=== PATIENT | female | born 1975 | race Two or more races ===

== ENCOUNTER 2016-06-13 14:10 | Inpatient (IN) | payer MEDICAID ==
[~2016-06-13] VITALS: Ht 157.5 cm; Wt 47.2 kg
[~2016-06-13 14:10] MED LIST: ALLO100T PO; BENA20TA2 PO; HYDR-4076 PO; IBUP-1619 PO; LABE100T15 PO; LISI-603 PO; ONDA-25 PO; SEVE800T PO
[2016-06-13] MEDS ORDERED: METO25TA6 PO (15:50)
[2016-06-13] MEDS ORDERED: MECL12.582 PO (15:50)
[2016-06-13] MEDS ORDERED: FOLI0.8T23 PO (15:50)
[2016-06-13] MEDS ORDERED: NIFE20CA PO (15:50)
[2016-06-13 16:32] LABS: BASOPHILS % (AUTO) 0.5 % (0.0-2.0); DIFF TOTAL % 100 %; HEMATOCRIT 38 % (33-45); HEMOGLOBIN 12.6 g/dL (11.5-14.8); LYMPHOCYTES # (AUTO) 0.8 /CMM (0.8-4.8); LYMPHOCYTES % (AUTO) 19.1 % (20.0-44.0); MEAN CORPUSCULAR HEMOGLOBIN 31 PG (26.0-33.0); MEAN CORPUSCULAR HGB CONC 33 g/dl (31.0-36.0); MEAN CORPUSCULAR VOLUME 95 fL (82-100); MONOCYTES # (AUTO) 0.5 /CMM (0.1-1.30); MONOCYTES % (AUTO) 12.4 % (2.0-12.0); NEUTROPHILS # (AUTO) 2.7 /CMM (1.8-8.9); PLATELET COUNT (AUTO) 164 /CMM (150-450); RED BLOOD CELL COUNT(AUTO) 4.05 MIL/uL (4.0-5.2)
[2016-06-13 16:46] LABS: CALCIUM, SERUM 9.4 mg/dL (8.5-10.1); CREATININE 4.7 mg/dL (0.6-1.3); POTASSIUM 5.9 mmol/L (3.5-5.1)
[2016-06-13 16:49] LABS: INR 1.02 (0.87-1.13); PROTHROMBIN TIME 10.7 SECS (9.5-12.7)
[2016-06-13 17:34] VITALS: BP 156/112
[2016-06-13 17:50] VITALS: BP 157/76
[2016-06-13] MEDS ORDERED: ZOLPIDEM TARTRATE 5 MG TABLET PO PRN (18:00)
[2016-06-13] MEDS ORDERED: ACETAMINOPHEN 325 MG TABLET PO PRN (18:00)
[2016-06-13] MEDS ORDERED: ONDANSETRON 4 MG TAB.RAPDIS PO PRN (18:30)
[2016-06-13] MEDS: METOPROLOL TARTRATE 25 MG TABLET PO SCH (18:44)
[2016-06-13] MEDS: hydrALAZINE HCL 25 MG TABLET PO SCH (19:13)
[2016-06-13 20:27] VITALS: BP 130/89
[2016-06-13] MEDS: MECLIZINE HCL 12.5 MG TABLET PO SCH (20:27)
[2016-06-13] MEDS: NIFEdipine (10MG) 10 MG CAPSULE PO SCH (20:28)
[2016-06-13] MEDS ORDERED: hydrALAZINE HCL 25 MG TABLET PO SCH (21:00)
[2016-06-14] MEDS: hydrALAZINE HCL 25 MG TABLET PO SCH ×3 (03:32→19:56)
[2016-06-14 07:45] LABS: BASOPHILS % (AUTO) 0.9 % (0.0-2.0); DIFF TOTAL % 100 %; EOSINOPHILS # (AUTO) 0.1 /CMM (0.0-0.7); EOSINOPHILS % (AUTO) 3.6 % (0.0-6.0); HEMATOCRIT 38 % (33-45); HEMOGLOBIN 12.8 g/dL (11.5-14.8); LYMPHOCYTES # (AUTO) 0.9 /CMM (0.8-4.8); LYMPHOCYTES % (AUTO) 25.3 % (20.0-44.0); MEAN CORPUSCULAR HEMOGLOBIN 32 PG (26.0-33.0); MEAN CORPUSCULAR HGB CONC 34 g/dl (31.0-36.0); MEAN CORPUSCULAR VOLUME 94 fL (82-100); MONOCYTES # (AUTO) 0.4 /CMM (0.1-1.30); MONOCYTES % (AUTO) 11.3 % (2.0-12.0); NEUTROPHILS % (AUTO) 58.9 % (43.0-81.0); PLATELET COUNT (AUTO) 178 /CMM (150-450); RED BLOOD CELL COUNT(AUTO) 4.02 MIL/uL (4.0-5.2); WHITE BLOOD COUNT (AUTO) 3.4 K/uL (4.3-11.0)
[2016-06-14 07:58] LABS: PROTHROMBIN TIME 10.8 SECS (9.5-12.7)
[2016-06-14 08:00] VITALS: BP 127/86
[2016-06-14] MEDS: SEVELAMER CARBONATE 800 MG TABLET PO SCH ×3 (08:00→16:50)
[2016-06-14 08:05] LABS: ALBUMIN 3.7 g/dL (3.4-5.0); BILIRUBIN,TOTAL 0.4 mg/dL (0.2-1.0); CALCIUM, SERUM 9.1 mg/dL (8.5-10.1); CREATININE 6.6 mg/dL (0.6-1.3); PHOSPHORUS 4.8 mg/dL (2.5-4.9); TOTAL PROTEIN, SERUM 7.4 g/dL (6.4-8.2)
[2016-06-14 08:12] LABS: POTASSIUM 6.5 mmol/L (3.5-5.1)
[2016-06-14] MEDS: MECLIZINE HCL 12.5 MG TABLET PO SCH ×4 (08:29→20:31)
[2016-06-14] MEDS: VIT B CMPLX 3/FA/VIT C/BIOTIN 1 TAB TABLET PO SCH (08:30)
[2016-06-14] MEDS: METOPROLOL TARTRATE 25 MG TABLET PO SCH ×2 (08:30→16:49)
[2016-06-14] MEDS: LISINOPRIL (20MG) 20 MG TABLET PO SCH (08:30)
[2016-06-14] MEDS: ALLOPURINOL 100 MG TABLET PO SCH (08:31)
[2016-06-14] MEDS: NIFEdipine (10MG) 10 MG CAPSULE PO SCH ×2 (08:31→20:31)
[2016-06-14] MEDS ORDERED: METOPROLOL TARTRATE 25 MG TABLET PO SCH (09:00)
[2016-06-14] MEDS ORDERED: HEPARIN SODIUM, PORCINE 1,000 UNIT/ML VIAL ONE ×3 (09:00→13:36)
[2016-06-14] MEDS ORDERED: LIDOCAINE HCL/PF 1% 30 ML SDV ONE ×2 (09:01→13:36)
[2016-06-14] MEDS ORDERED: FENTANYL PF 100MCG/2ML AMPUL ONE ×2 (13:56→14:50)
[2016-06-14 16:00] VITALS: BP 127/92
[2016-06-14] MEDS: MORPHINE SULFATE INJ 2 MG/ML DISP.SYRIN IM/IV PRN (20:51)
[2016-06-14 22:18] VITALS: BP 135/98
[2016-06-15] MEDS: hydrALAZINE HCL 25 MG TABLET PO SCH ×2 (04:00→12:01)
[2016-06-15] MEDS: MORPHINE SULFATE INJ 2 MG/ML DISP.SYRIN IM/IV PRN ×3 (06:52→14:06)
[2016-06-15 08:00] VITALS: BP 119/87
[2016-06-15] MEDS: ALLOPURINOL 100 MG TABLET PO SCH (08:34)
[2016-06-15] MEDS: VIT B CMPLX 3/FA/VIT C/BIOTIN 1 TAB TABLET PO SCH (08:34)
[2016-06-15] MEDS: SEVELAMER CARBONATE 800 MG TABLET PO SCH ×2 (08:34→12:01)
[2016-06-15] MEDS: LISINOPRIL (20MG) 20 MG TABLET PO SCH (08:35)
[2016-06-15] MEDS: METOPROLOL TARTRATE 25 MG TABLET PO SCH (08:36)
[2016-06-15] MEDS: NIFEdipine (10MG) 10 MG CAPSULE PO SCH (08:36)
[2016-06-15] MEDS: MECLIZINE HCL 12.5 MG TABLET PO SCH ×2 (08:38→12:01)
[2016-06-15 12:01] VITALS: BP 143/92
== END 2016-06-15 15:15 | disposition home or self-care (01) | DRG 466 ==
LOC: ER 14:12 → MED 16:45
PROVIDERS: ADMIT Internal Medicine Nephrology; ATTEND Internal Medicine Nephrology
PROC: B513YZA Fluoroscopy of Right Jugular Veins using Other Contrast, Guidance (ICD-10-PCS; principal; 2016-06-14 14:26)
PROC: 5A1D00Z (ICD-10-PCS; principal; 2016-06-14 14:26)
PROC: 05HM33Z Insertion of Infusion Device into Right Internal Jugular Vein, Percutaneous Approach (ICD-10-PCS; principal; 2016-06-14 14:26)
DX: T82.41XA Breakdown (mechanical) of vascular dialysis catheter, initial encounter (principal); N18.6 End stage renal disease; I12.0 Hypertensive chronic kidney disease with stage 5 chronic kidney disease or end stage renal disease; E87.5 Hyperkalemia; Z99.2 Dependence on renal dialysis; Y84.9 Medical procedure, unspecified as the cause of abnormal reaction of the patient, or of later complication, without mention of misadventure at the time of the procedure; Y92.009 Unspecified place in unspecified non-institutional (private) residence as the place of occurrence of the external cause
CPT/HCPCS: 36415; 71010-TC; 80048-TC; 80053-TC; 83735-TC; 84100-TC; 84132-TC; 85025-TC; 85610-TC; 85730-TC; 87081-TC; 90935-TC; A4606; A6402; C1750; J1644; J2270; J3010; J3490; J8597; Z7610

== ENCOUNTER 2016-11-14 13:18 | Inpatient (IN) | payer OTHER ==
[~2016-11-14] VITALS: Ht 152.4 cm; Wt 44.9 kg
[~2016-11-14 13:18] MED LIST changes: -BENA20TA2 PO; +FOLI0.8T23 PO; -IBUP-1619 PO; -LABE100T15 PO; +MECL12.582 PO; +METO25TA6 PO; +NIFE20CA PO
--- NOTE | 2016-11-14 13:25 | NUR ---
AAOX3, CAME TO ER C/O SOB S/P DIALYSIS THIS MORNING . RR IS EVEN AND UNLABORED WITH NAD NOTED. SKIN IS WARM AND DRY. ASSISTED TO HOSPITAL GOWN, PLACED ON MONITOR. SPO2=99% ON RA. AWAITING MD FOR EVAL.
[2016-11-14 13:44] LABS: BASOPHILS % (AUTO) 0.5 % (0.0-2.0); EOSINOPHILS % (AUTO) 0.3 % (0.0-6.0); HEMATOCRIT 43 % (33-45); HEMOGLOBIN 14.1 g/dL (11.5-14.8); LYMPHOCYTES # (AUTO) 0.9 /CMM (0.8-4.8); LYMPHOCYTES % (AUTO) 16.7 % (20.0-44.0); MEAN CORPUSCULAR HEMOGLOBIN 32 PG (26.0-33.0); MEAN CORPUSCULAR HGB CONC 33 g/dl (31.0-36.0); MEAN CORPUSCULAR VOLUME 97 fL (82-100); MONOCYTES # (AUTO) 0.4 /CMM (0.1-1.30); NEUTROPHILS # (AUTO) 3.8 /CMM (1.8-8.9); NEUTROPHILS % (AUTO) 74.5 % (43.0-81.0); PLATELET COUNT (AUTO) 210 /CMM (150-450); RDW COEFFICIENT OF VARIATION 12.3 (11.5-15.0); RED BLOOD CELL COUNT(AUTO) 4.42 MIL/uL (4.0-5.2); WHITE BLOOD COUNT (AUTO) 5.1 K/uL (4.3-11.0)
[2016-11-14 13:53] LABS: CALCIUM, SERUM 9.2 mg/dL (8.5-10.1); POTASSIUM 5.5 mmol/L (3.5-5.1)
[2016-11-14 13:58] LABS: INR 1.04 (0.87-1.13); PROTHROMBIN TIME 10.8 SECS (9.5-12.7)
[2016-11-14] MEDS ORDERED: IV NS 0.9% 500 ML BAG IV ONE (14:00)
[2016-11-14 14:01] LABS: TROPONIN I 0.077 ng/mL (0.00-0.056)
[2016-11-14 14:06] LABS: ALBUMIN 4.1 g/dL (3.4-5.0); BILIRUBIN,DIRECT 0.1 mg/dL (0.0-0.2); BILIRUBIN,TOTAL 0.3 mg/dL (0.2-1.0); TOTAL PROTEIN, SERUM 8.3 g/dL (6.4-8.2)
[2016-11-14] MEDS ORDERED: IV SET PRIMARY 1 EA INFUS.SET MC ONE (14:06)
[2016-11-14] MEDS ORDERED: IV NS 0.9% 500 ML IV ONE (14:06)
--- NOTE | 2016-11-14 14:30 | NUR ---
ASSISTANT DIRECTOR NOTES WRITTEN ORDERS PER DR. KERN FOR A BOLUS OF NS 500ML WERE ACKNOWLEDGED. WILL CARRY OUT ORDER STAT
[2016-11-14] MEDS ORDERED: VANCOMYCIN 1 GM in IV D5W 250 ML IV ONE (15:00)
--- NOTE | 2016-11-14 15:41 | NUR ---
TELE 320-1
--- NOTE | 2016-11-14 16:07 | NUR ---
PATIENT TRANSPORTED TO .
--- NOTE | 2016-11-14 16:07 | NUR ---
Report given to floor rn
--- NOTE | 2016-11-14 16:23 | NUR ---
SPECIAL FORCES ENGINEER SERGEANT NOTES RECEIVED PT. FROM ER NURSE IN STABLE CONDITION. PT. IS A/O X3. NO SOB OR SIGNS OF DISTRESS NOTED. BREATHING IS EVEN AND UNLABORED. ON ROOM AIR SATING AT 98%. PT. DENIES PAIN AT THIS TIME. ON TELE WITH SINUS RHYTHM, HR 70. RIGHT CHEST WALL PERMCATH INTACT. IV PRESENT ON RIGHT AC 20G PATENT AND INTACT. BED IN LOW LOCKED POSITION, SIDE RAILS UP X2, CALL LIGHT WITHIN REACH. AT BEDSIDE. PT. WAS ORIENTED TO THE ROOM. WILL BEGIN ADMISSION PROCESS AND AWAIT FURTHER ORDERS FROM THE MD.
[2016-11-14] MEDS ORDERED: IV NS 0.9% 250 ML BAG IV STA (16:24)
[2016-11-14 16:30] VITALS: BP 88/55
[2016-11-14] MEDS ORDERED: IV SET PRIMARY PUMP SET 1 EA INFUS.SET MC ONE (16:45)
[2016-11-14] MEDS ORDERED: FEE PK DOSING 1 MIN EA MC ONE (18:25)
[2016-11-14 18:28] VITALS: BP 88/55
[2016-11-14] MEDS ORDERED: VANCOMYCIN 500 MG in IV D5W 100 ML IV PRN (18:30)
[2016-11-14] MEDS ORDERED: ACETAMINOPHEN 325 MG TABLET PO PRN (18:30)
--- NOTE | 2016-11-14 18:43 | NUR ---
REGISTRATION SCHEDULING SPECIALIST CLOSING NOTES PT. IN STABLE CONDITION. WRITTEN ORDERS CARRIED OUT ACCORDING TO DR. KERN'S ORDER. ALL NEEDS MET. NO FEVER AT THIS TIME. WILL ENDORSE TO [facility] SHIFT NURSE FOR JERE
[2016-11-14] MEDS ORDERED: ONDANSETRON 4 MG TAB.RAPDIS PO PRN (19:00)
[2016-11-14 20:16] VITALS: BP 89/57
[2016-11-14] MEDS: hydrALAZINE HCL 25 MG TABLET PO SCH ×2 (21:00→21:25)
[2016-11-14] MEDS: METOPROLOL TARTRATE 25 MG TABLET PO SCH (21:00)
[2016-11-14] MEDS: MECLIZINE HCL 12.5 MG TABLET PO SCH (21:23)
[2016-11-14] MEDS ORDERED: SECONDARY IV SET 1 EA INFUS.SET MC ONE (21:27)
[2016-11-14] MEDS: PIPERACILLIN /TAZOBACTAM 2.25 G in IV D5W 50 ML IV SCH (21:34)
[2016-11-14] MEDS ORDERED: IV NS 0.9% 250 ML IV ONE (21:38)
[2016-11-14 23:34] VITALS: BP 89/57
[2016-11-15] VITALS (8 sets, daily range): BP systolic 87–109; BP diastolic 56–71
[2016-11-15] MEDS: PIPERACILLIN /TAZOBACTAM 2.25 G in IV D5W 50 ML IV SCH ×3 (05:18→21:06)
--- NOTE | 2016-11-15 06:17 | NUR ---
APPRAISAL MANAGER CLOSING NOTES. PT IN ROOM. A&OX3. RESPIRATION EVEN AND UNLABORED. NO SOB. NO ACUTE DISTRESS NOTED. NO COMPLAIN OF PAIN AT THIS TIME. RIGHT AC #20G. PATENT AND INTACT. FLUSHING WELL. BED IN LOW AND LOCKED POSITION. SIDERAILS UP X2. CALL LIGHT WITHIN REACH. WILL ENDORSE TO NEXT SHIFT NURSE FOR CONTINUITY OF CARE.
--- NOTE | 2016-11-15 07:55 | NUR ---
PRODUCE WEIGHER OPENING NOTES RECEIVED PATIENT ON BED SLEEPING. RESPIRATION EVEN AND UNLABORED. NO SOB. NO ACUTE DISTRESS NOTED. NO COMPLAIN OF PAIN AT THIS TIME. IV SITE PATENT AND INTACT. BED IN LOW POSITION. SIDERAILS UP X2. CALL LIGHT WITHIN REACH. WILL CONTINUE TO MONITOR.
[2016-11-15 08:05] LABS: BASOPHILS % (AUTO) 0.4 % (0.0-2.0); EOSINOPHILS # (AUTO) 0.1 /CMM (0.0-0.7); HEMATOCRIT 35 % (33-45); HEMOGLOBIN 12.2 g/dL (11.5-14.8); LYMPHOCYTES # (AUTO) 0.6 /CMM (0.8-4.8); LYMPHOCYTES % (AUTO) 11.8 % (20.0-44.0); MEAN CORPUSCULAR HEMOGLOBIN 34 PG (26.0-33.0); MEAN CORPUSCULAR HGB CONC 35 g/dl (31.0-36.0); MEAN CORPUSCULAR VOLUME 96 fL (82-100); MONOCYTES # (AUTO) 0.5 /CMM (0.1-1.30); MONOCYTES % (AUTO) 8.8 % (2.0-12.0); NEUTROPHILS # (AUTO) 4.1 /CMM (1.8-8.9); PLATELET COUNT (AUTO) 150 /CMM (150-450); RDW COEFFICIENT OF VARIATION 12.5 (11.5-15.0); RED BLOOD CELL COUNT(AUTO) 3.59 MIL/uL (4.0-5.2); WHITE BLOOD COUNT (AUTO) 5.3 K/uL (4.3-11.0)
[2016-11-15 08:40] LABS: CALCIUM, SERUM 8.4 mg/dL (8.5-10.1)
[2016-11-15 08:49] LABS: POTASSIUM 6.4 mmol/L (3.5-5.1)
[2016-11-15 08:50] LABS: CREATININE 9.1 mg/dL (0.6-1.3)
[2016-11-15] MEDS: SEVELAMER CARBONATE 800 MG TABLET PO SCH ×3 (08:52→17:25)
[2016-11-15] MEDS: VIT B CMPLX 3/FA/VIT C/BIOTIN 1 TAB TABLET PO SCH (08:53)
[2016-11-15] MEDS: MECLIZINE HCL 12.5 MG TABLET PO SCH ×4 (08:55→21:06)
[2016-11-15] MEDS: hydrALAZINE HCL 25 MG TABLET PO SCH (08:58)
[2016-11-15] MEDS: METOPROLOL TARTRATE 25 MG TABLET PO SCH ×2 (08:59→17:00)
[2016-11-15] MEDS ORDERED: LISINOPRIL (20MG) 20 MG TABLET PO SCH (09:00)
[2016-11-15 09:45] LABS: THYROID STIMULATING HORMONE 1.129 uIU/mL (0.358-3.74)
[2016-11-15] MEDS ORDERED: SECONDARY IV SET 1 EA INFUS.SET MC ONE (13:20)
--- NOTE | 2016-11-15 14:00 | NUR ---
HEMODIALYSIS PROCEDURE DONE WITH 1.6 L OUTPUT.
--- NOTE | 2016-11-15 14:10 | NUR ---
VANCO IV HELD POST HD PROCEDURE.VANCO LEVEL IS 24.
[2016-11-15] MEDS: LACTOBACILLUS RHAMNOSUS GG 1 EACH CAP.SPRINK PO SCH (17:24)
--- NOTE | 2016-11-15 19:00 | NUR ---
RN CLOSING NOTES PATIENT ON BED RESTING WITH STABLE VITAL SIGNS. NO ACUTE DISTRESS NOTED. ALL NEEDS PROVIDED AND ATTENDED. BED IN LOWEST POSITION. CALL LIGHT WITHIN REACH. ENDORSED TO DRY SANDER RN FOR CONTINUITY OF CARE.
--- NOTE | 2016-11-15 20:00 | NUR ---
RN OPENING NOTES: RECEIVED PT IN ROOM. AWAKE. WITH FAMILY MEMBER. A&OX3. RESPIRATION EVEN AND UNLABORED. NO SOB. NO COMPLAIN OF PAIN/DISCOMFORT AT THIS TIME. R AC #20 PATENT AND INTACT. FLUSHING WELL. ALL NEEDS ATTENDED AND ANTICIPATED. BED IN LOW AND LOCKED POSITION. SIDERAILS UPX2. CALL LIGHT WITHIN REACH. WILL CONTINUE TO MONITOR FOR SAFETY AND BEHAVIOR [id number].
[2016-11-16] MEDS: PIPERACILLIN /TAZOBACTAM 2.25 G in IV D5W 50 ML IV SCH (05:26)
--- NOTE | 2016-11-16 06:19 | NUR ---
RN CLOSING NOTES. PT IN ROOM. AWAKE. A&OX3. RESPIRATION EVEN AND UNLABORED. NO SOB. NO ACUTE DISTRESS NOTED. NO COMPLAIN OF PAIN AT THIS TIME. RIGHT AC #20G. PATENT AND INTACT. FLUSHING WELL. BED IN LOW AND LOCKED POSITION. SIDERAILS UP X2. CALL LIGHT WITHIN REACH. WILL ENDORSE TO NEXT SHIFT NURSE FOR CONTINUITY OF CARE.
[2016-11-16 07:32] LABS: CALCIUM, SERUM 8.2 mg/dL (8.5-10.1); CREATININE 7.1 mg/dL (0.6-1.3); POTASSIUM 5.2 mmol/L (3.5-5.1)
[2016-11-16 08:00] VITALS: BP 95/67
--- NOTE | 2016-11-16 08:00 | NUR ---
RN OPENING NOTES: RECEIVED PATIENT ASLEEP IN BED, EASILY AWAKENS. A/O X3, NO C/O PAIN OR DISCOMFORTS AT THIS TIME. ON ROOM AIR, BREATHING EVEN AND UNLABORED. IV ACCESS ON RIGHT AC G#20 PATENT AND INTACT. BED IN LOW AND LOCKED POSITION WITH SIDE-RAILS UPX2. CALL LIGHT WITHIN REACH. ALL SAFETY PRECAUTIONS MAINTAINED. WILL CONTINUE TO MONITOR ACCORDINGLY.
[2016-11-16] MEDS: LACTOBACILLUS RHAMNOSUS GG 1 EACH CAP.SPRINK PO SCH ×2 (08:20→17:08)
[2016-11-16] MEDS: SEVELAMER CARBONATE 800 MG TABLET PO SCH ×3 (08:20→17:08)
[2016-11-16] MEDS: VIT B CMPLX 3/FA/VIT C/BIOTIN 1 TAB TABLET PO SCH (08:20)
[2016-11-16] MEDS: METOPROLOL TARTRATE 25 MG TABLET PO SCH ×2 (08:22→17:10)
[2016-11-16] MEDS: MECLIZINE HCL 12.5 MG TABLET PO SCH ×4 (08:25→21:04)
[2016-11-16] MEDS ORDERED: LISINOPRIL (20MG) 20 MG TABLET PO SCH (09:00)
--- NOTE | 2016-11-16 12:40 | NUR ---
RN NOTES PATIENT ON HEMODIALYSIS IN PROGRESS. DR KERN CAME AND EVALUATED PT AND ORDER TO DISCONTINUE ABT ZOSYN, ORDERED CARRIED OUT. ALL BLOOD WORKS RESULTS TODAY ALSO REPORTED. WILL CONTINUE TO MONITOR.
--- NOTE | 2016-11-16 13:12 | NUR ---
RN NOTES PATIENT JUST FINISHED HEMODIALYSIS WITH OUTPUT OF 1.1L. V/S POST DIALYSIS: 121/76, RR 18, P 76, T 97.9F. NO ADVERSE REACTIONS NOTED SAME NO C/O OF PAIN, N & V. WILL CONTINUE TO MONITOR
[2016-11-16 16:00] VITALS: BP 119/63
[2016-11-16 16:53] VITALS: BP 119/63
--- NOTE | 2016-11-16 18:46 | NUR ---
RN CLOSING NOTES: PATIENT AWAKE AND RESTING IN BED. A/O X3, NO C/O PAIN OR DISCOMFORTS VOICED DURING THROUGHOUT THE DAY. ALL DUE MEDS GIVEN ORDERED AND TOLERATED. ON ROOM AIR, BREATHING EVEN AND UNLABORED. IV ACCESS ON RIGHT AC G#20 PATENT AND INTACT. BED IN LOW AND LOCKED POSITION WITH SIDE-RAILS UPX2. CALL LIGHT WITHIN REACH. ALL SAFETY PRECAUTIONS MAINTAINED. ALL NEEDS AND CARE PROVIDED WELL. WILL ENDORSED TO MANAGER OF RECRUITING FOR JERE.
--- NOTE | 2016-11-16 19:36 | NUR ---
RN OPENING NOTES: RECEIVED PT IN ROOM. AWAKE. WATCHING TV. A&OX3. RESPIRATION EVEN AND UNLABORED. NO SOB. NO COMPLAIN OF PAIN/DISCOMFORT AT THIS TIME. R AC #20 PATENT AND INTACT. FLUSHING WELL. ALL NEEDS ATTENDED AND ANTICIPATED. BED IN LOW AND LOCKED POSITION. SIDERAILS UPX2. CALL LIGHT WITHIN REACH. WILL CONTINUE TO MONITOR FOR SAFETY.
[2016-11-16 20:00] VITALS: BP 109/75
[2016-11-16 20:19] VITALS: BP 109/75
--- NOTE | 2016-11-17 05:50 | NUR ---
RN CLOSING NOTES: PATIENT AWAKE AND RESTING COMFORTABLY IN BD. A/O X3. NO C/O PAIN OR DISCOMFORTS AT THIS TIME. BREATHING EVEN AND UNLABORED. IV ACCESS ON RIGHT AC G#20 PATENT AND INTACT. FLUSHING WELL. BED IN LOW AND LOCKED POSITION WITH SIDE-RAILS UPX2. CALL LIGHT WITHIN REACH. SAFETY PRECAUTIONS MAINTAINED AT ALL TIMES. WILL ENDORSE TO NEXT SHIFT NURSE FOR JERE.
--- NOTE | 2016-11-17 07:30 | NUR ---
MS RN NOTES: RECEIVED PT ON BED AWAKE. ALERT AND ORIENTED X 3. WITH FAMILY MEMBER AT BEDSIDE RESPIRATION EVEN AND UNLABORED. NO SOB. NO COMPLAIN OF PAIN/DISCOMFORT AT THIS TIME. WITH RAC #20 PATENT AND INTACT. FLUSHES WELL. CALL LIGHT WITHIN REACH. BED IN LOW POSITION FOR SAFETY MEASURES. WILL CONTINUE TO MONITOR.
[2016-11-17 08:00] VITALS: BP 117/77
[2016-11-17 08:00] LABS: CALCIUM, SERUM 8.1 mg/dL (8.5-10.1); CREATININE 7.4 mg/dL (0.6-1.3)
[2016-11-17] MEDS: LACTOBACILLUS RHAMNOSUS GG 1 EACH CAP.SPRINK PO SCH ×2 (08:39→16:47)
[2016-11-17] MEDS: SEVELAMER CARBONATE 800 MG TABLET PO SCH ×3 (08:39→17:05)
[2016-11-17] MEDS: LISINOPRIL (5MG) 5 MG TABLET PO SCH (08:40)
[2016-11-17] MEDS: METOPROLOL TARTRATE 25 MG TABLET PO SCH ×2 (08:40→16:47)
[2016-11-17] MEDS: VIT B CMPLX 3/FA/VIT C/BIOTIN 1 TAB TABLET PO SCH (08:40)
[2016-11-17] MEDS: MECLIZINE HCL 12.5 MG TABLET PO SCH ×4 (08:41→21:09)
--- NOTE | 2016-11-17 10:30 | NUR ---
MS RN NOTES. SEEN AND EXAMINED BY DR. KERN TO CONTINUE ON THE SAME TREATMENT. PLAN FOR VASCULAR AVF CREATION ON FRIDAY.
[2016-11-17 16:00] VITALS: BP 123/80
--- NOTE | 2016-11-17 18:14 | NUR ---
MS RN NOTES ALL NEEDS ATTENDED AND ANTICIPATED. ENDORSED TO INCOMING SHIFT FOR CONTINUITY OF CARE.
[2016-11-17 20:00] VITALS: BP 121/88
--- NOTE | 2016-11-18 07:30 | NUR ---
RN MS NOTES PATIENT IN BED, ALERT AND ORIENTED, [place] SPEAKING, NO COMPLAINT OF PAIN OR DISCOMFORT, SCHEDULED TO HAVE DIALYSIS TODAY, PIV ON RIGHT AC PATENT AND INTACT, RIGHT CHEST PERMACATH C/D/I, CALL LIGHT WITHIN REACH, SAFETY MEASURES IN PLACED, WILL CONTINUE TO MONITOR.
[2016-11-18 07:38] LABS: CALCIUM, SERUM 7.8 mg/dL (8.5-10.1); POTASSIUM 5.4 mmol/L (3.5-5.1)
[2016-11-18 08:00] LABS: CREATININE 9.8 mg/dL (0.6-1.3)
[2016-11-18] MEDS: SEVELAMER CARBONATE 800 MG TABLET PO SCH ×3 (08:10→18:57)
[2016-11-18] MEDS: LACTOBACILLUS RHAMNOSUS GG 1 EACH CAP.SPRINK PO SCH ×2 (08:10→16:43)
[2016-11-18] MEDS: MECLIZINE HCL 12.5 MG TABLET PO SCH ×4 (08:10→20:40)
[2016-11-18] MEDS: VIT B CMPLX 3/FA/VIT C/BIOTIN 1 TAB TABLET PO SCH (08:10)
[2016-11-18] MEDS: LISINOPRIL (5MG) 5 MG TABLET PO SCH (08:12)
[2016-11-18] MEDS: METOPROLOL TARTRATE 25 MG TABLET PO SCH ×2 (08:12→16:44)
--- NOTE | 2016-11-18 08:13 | NUR ---
RN MS NOTES BP MEDICATIONS HELD DUE TO PATIENT'S SCHEDULED DIALYSIS FOR TODAY
[2016-11-18 08:14] VITALS: BP 114/80
--- NOTE | 2016-11-18 19:00 | NUR ---
RN MS NOTES RECEIVED A CALL FROM DR. OLSEN, PATIENT IS SCHEDULED FOR AV ACCESS PLACEMENT TOMORROW, RECEIVED NEW ORDER FOR CONSENT, NPO AFTER MIDNIGHT, AND LABS IN AM, ORDER NOTED AND CARRIED OUT. PATIENT SIGNED INFORMED CONSENT. DIALYSIS STARTED AT THIS TIME. ALL NEEDS ATTENDED, WILL ENDORSE TO SURVEILLANCE DIRECTOR FOR JERE.
--- NOTE | 2016-11-18 19:59 | NUR ---
RECEIVED PATIENT IN BED, ALERT AND ORIENTED X4, CALM, NO SOB, NO RESPIRATORY DISTRESS, DENIES ANY PAIN AT THIS TIME, ON HD AT THIS TIME. KEPT SAFE AND COMFORTABLE, FAMILY MEMBER AT THE BEDSIDE. WILL CONTINUE TO MONITOR.
[2016-11-18 20:00] VITALS: BP 120/76
--- NOTE | 2016-11-18 21:18 | NUR ---
HD DONE, 0 OUTPUT, BP 149/82 HR 75, PROCEDURE TOLERATED WELL.
--- NOTE | 2016-11-18 21:33 | NUR ---
COMPLAINING OF HEADACHE OF 3/10, GIVEN TYLENOL 650 MG PO PRN
--- NOTE | 2016-11-18 22:00 | NUR ---
PROVIDED INSTRUCTION TO BE NPO AFTER MIDNIGHT IN [facility] TO AV ACCESS PLACEMENT. PATIENT VERBALIZED UNDERSTANDING
--- NOTE | 2016-11-19 06:43 | NUR ---
PATIENT IS ALERT AND AWAKE, NO SOB, NO DISTRESS, NO COMPLAIN OF PAIN, NO ADVERSE CHANGE OF CONDITION DURING SHIFT, SLEPT FOR 7.5 HOURS, REMOVED ALL FLUIDS AT THE BEDSIDE, KEPT SAFE AND COMFORTABLE, CALL LIGHT WITHIN REACH.
[2016-11-19 07:37] LABS: BASOPHILS % (AUTO) 0.3 % (0.0-2.0); EOSINOPHILS # (AUTO) 0.1 /CMM (0.0-0.7); EOSINOPHILS % (AUTO) 2.6 % (0.0-6.0); HEMATOCRIT 30 % (33-45); HEMOGLOBIN 10.6 g/dL (11.5-14.8); LYMPHOCYTES % (AUTO) 19.9 % (20.0-44.0); MEAN CORPUSCULAR HEMOGLOBIN 34 PG (26.0-33.0); MEAN CORPUSCULAR HGB CONC 36 g/dl (31.0-36.0); MEAN CORPUSCULAR VOLUME 95 fL (82-100); MONOCYTES # (AUTO) 0.4 /CMM (0.1-1.30); MONOCYTES % (AUTO) 7.3 % (2.0-12.0); NEUTROPHILS # (AUTO) 3.5 /CMM (1.8-8.9); NEUTROPHILS % (AUTO) 69.9 % (43.0-81.0); PLATELET COUNT (AUTO) 115 /CMM (150-450); RDW COEFFICIENT OF VARIATION 12.6 (11.5-15.0); RED BLOOD CELL COUNT(AUTO) 3.12 MIL/uL (4.0-5.2)
[2016-11-19 07:49] LABS: INR 0.94 (0.87-1.13)
[2016-11-19 08:00] VITALS: BP 132/83
[2016-11-19 08:00] LABS: CALCIUM, SERUM 7.7 mg/dL (8.5-10.1); POTASSIUM 4.6 mmol/L (3.5-5.1)
[2016-11-19] MEDS: SEVELAMER CARBONATE 800 MG TABLET PO SCH ×4 (08:00→20:42)
--- NOTE | 2016-11-19 08:05 | NUR ---
RN NOTES RECEIVED PATIENT IN BED, ALERT AND ORIENTED X4, CALM, NO SOB, NO RESPIRATORY DISTRESS, DENIES ANY PAIN AT THIS TIME PT TO HAVE PROCEDURE TODAY TO KEEP NPO. KEPT SAFE AND COMFORTABLE, WILL CONTINUE TO MONITOR.
[2016-11-19 08:07] LABS: CREATININE 8.1 mg/dL (0.6-1.3)
[2016-11-19] MEDS: MECLIZINE HCL 12.5 MG TABLET PO SCH ×4 (08:43→21:24)
[2016-11-19] MEDS: LACTOBACILLUS RHAMNOSUS GG 1 EACH CAP.SPRINK PO SCH ×2 (08:43→17:00)
[2016-11-19] MEDS: METOPROLOL TARTRATE 25 MG TABLET PO SCH (08:44)
[2016-11-19] MEDS: VIT B CMPLX 3/FA/VIT C/BIOTIN 1 TAB TABLET PO SCH (08:45)
[2016-11-19] MEDS: LISINOPRIL (5MG) 5 MG TABLET PO SCH (08:45)
[2016-11-19] MEDS ORDERED: PAPAVERINE HCL 30 MG/ML 10 MLVIAL IART ONE (11:09)
[2016-11-19] MEDS ORDERED: ONDANSETRON HCL/PF 4 MG/2 ML VIAL IV PRN (13:30)
[2016-11-19] MEDS ORDERED: BISACODYL (5 MG) 5 MG TABLET.DR PO PRN (13:30)
--- NOTE | 2016-11-19 13:50 | NUR ---
RN NOTES CT OF HIP RESULTS RELAYED TO DR. CHRISTIE NOTED WITH FRACTURE PER RESULT, PER MD TO HAVE ORTHOPEDIC CONSULT, JENNIFER LOYD MADE AWARE, FAMILY AT BEDSIDE MADE AWARE WILL CONTINUE TO MONITOR Addendum: 11/19/16 at 1351 by SUZAN TOUSSAINT RN RN NOTES INCORRECT ENTRY
--- NOTE | 2016-11-19 13:54 | NUR ---
RN NOTES PT CONTINUES TO BE NPO FOR PROCEDURE, NO ASE NOTED, WILL CONTINUE TO MONITOR AND AWAITING PROCEDURE
--- NOTE | 2016-11-19 14:15 | NUR ---
RN NOTES PATIENT TAKEN TO OR FOR PROCEDURE NOTED IN STABLE CONDITION, WILL CONTINUE TO MONITOR UPON RETURN
[2016-11-19] MEDS ORDERED: FENTANYL PF 100MCG/2ML AMPUL ONE ×2 (14:34→16:57)
[2016-11-19] MEDS ORDERED: MIDAZOLAM HCL 2 MG/2ML VIAL ONE (14:34)
[2016-11-19] MEDS ORDERED: LIDOCAINE HCL/PF 1% 30 ML SDV ONE (14:41)
[2016-11-19] MEDS ORDERED: HEPARIN SODIUM, PORCINE 1,000 UNIT/ML VIAL ONE (14:41)
[2016-11-19] MEDS ORDERED: CELLULOSE,OXIDIZED 1 EA PACK MC ONE (16:12)
[2016-11-19] MEDS ORDERED: BUPIVACAINE 0.25% 75 MG/30 ML VIAL ONE (16:17)
[2016-11-19] MEDS ORDERED: ANESTHESIA TRAY IN PYXIS 1 EA TRAY MC ONE (17:13)
[2016-11-19] MEDS: MORPHINE SULFATE INJ 2 MG/ML DISP.SYRIN IV PRN ×2 (18:23→23:35)
[2016-11-19 19:30] VITALS: BP 165/111
--- NOTE | 2016-11-19 19:30 | NUR ---
RN NOTES NEXT SHIFT AWARE PT TO GET RENVELA WITH FOOD
--- NOTE | 2016-11-19 19:35 | NUR ---
RN NOTES PATIENT IN BED, ALERT AND ORIENTED X4, CALM, NO SOB, NO RESPIRATORY DISTRESS, DENIES ANY PAIN AT THIS TIME PT TO S/P PROCEDURE TODAY, HAVING HD TREATMENT. KEPT SAFE AND COMFORTABLE, WILL CONTINUE TO MONITOR ENDORSED TO NEXT SHIFT FOR CONTINUITY OF CARE.
[2016-11-19 20:00] VITALS: BP 165/111
--- NOTE | 2016-11-19 20:00 | NUR ---
RECEIVED PATIENT IN BED, ALERT AND ORIENTED X4, CALM, TIRED, NO SOB, NO RESPIRATORY DISTRESS, 02 SAT 96% ON ROOM AIR, S/P HD WITH OUTPUT OF 1.5 L. BP ELEVATED AFTER HD. LEFT FOREARM SECURED WITH DRESSING, NO BLEEDING. NEEDS ATTENDED, OFFERED DINNER, AT THE BEDSIDE. CALL LIGHT WITHIN REACH.
[2016-11-19] MEDS: HYDROCODONE/APAP 5/325MG 1 EACH TABLET PO PRN (20:23)
[2016-11-19 20:30] VITALS: BP 148/99
[2016-11-19 21:30] VITALS: BP 166/100
[2016-11-19 23:45] VITALS: BP 169/104
--- NOTE | 2016-11-19 23:45 | NUR ---
NOTIFIED DR. BURNETTE OF ELEVATED BP OF 169/104, NO NEW ORDER. PER MD, PATIENT IS S/P AV ACCESS PLACEMENT, CONTINUE TO MONITOR AND PROVIDE PAIN MEDICATION
[2016-11-20] MEDS: HYDROCODONE/APAP 5/325MG 1 EACH TABLET PO PRN ×2 (02:58→07:29)
--- NOTE | 2016-11-20 03:01 | NUR ---
COMPLAINING OF PAIN TO LEFT FOREARM OF 8/10, CRYING, RESTLESS, GIVEN NORCO 5/325 PO, V/S ACCEPTABLE. WILL CONTINUE TO MONITOR.
--- NOTE | 2016-11-20 06:25 | NUR ---
PATIENT IN BED, ALERT AND AWAKE, NO SOB, NO RESPIRATORY DISTRESS, COMPLAINING OF PAIN OF 5/10 TO LEFT FOREARM, S/P AV ACCESS PLACEMENT, PROVIDED PAIN MEDICATION DURING SHIFT, TEMPERATURE AT THIS TIME IS 98.8 F. NEEDS ATTENDED, CALL LIGHT WITHIN REACH.
--- NOTE | 2016-11-20 07:21 | NUR ---
RN NOTES RECEIVED PATIENT IN BED, ALERT AND ORIENTED X4, CALM, NO SOB, NO RESPIRATORY DISTRESS,CONTINUED ON PAIN MANAGEMENT. KEPT SAFE AND COMFORTABLE CALL LIGHT WITHIN EASY REACH, WILL CONTINUE TO MONITOR.
[2016-11-20 07:41] LABS: BASOPHILS % (AUTO) 0.3 % (0.0-2.0); EOSINOPHILS # (AUTO) 0.1 /CMM (0.0-0.7); EOSINOPHILS % (AUTO) 1.6 % (0.0-6.0); HEMATOCRIT 29 % (33-45); HEMOGLOBIN 10.3 g/dL (11.5-14.8); LYMPHOCYTES # (AUTO) 0.7 /CMM (0.8-4.8); LYMPHOCYTES % (AUTO) 16.4 % (20.0-44.0); MEAN CORPUSCULAR HEMOGLOBIN 34 PG (26.0-33.0); MEAN CORPUSCULAR HGB CONC 36 g/dl (31.0-36.0); MEAN CORPUSCULAR VOLUME 95 fL (82-100); MONOCYTES # (AUTO) 0.3 /CMM (0.1-1.30); MONOCYTES % (AUTO) 7.2 % (2.0-12.0); NEUTROPHILS # (AUTO) 3.3 /CMM (1.8-8.9); NEUTROPHILS % (AUTO) 74.5 % (43.0-81.0); PLATELET COUNT (AUTO) 110 /CMM (150-450); RDW COEFFICIENT OF VARIATION 12.3 (11.5-15.0); RED BLOOD CELL COUNT(AUTO) 3.05 MIL/uL (4.0-5.2); WHITE BLOOD COUNT (AUTO) 4.5 K/uL (4.3-11.0)
[2016-11-20 08:00] VITALS: BP 129/89
[2016-11-20] MEDS: VIT B CMPLX 3/FA/VIT C/BIOTIN 1 TAB TABLET PO SCH (08:02)
[2016-11-20] MEDS: LACTOBACILLUS RHAMNOSUS GG 1 EACH CAP.SPRINK PO SCH (08:02)
[2016-11-20] MEDS: SEVELAMER CARBONATE 800 MG TABLET PO SCH (08:02)
[2016-11-20] MEDS: MECLIZINE HCL 12.5 MG TABLET PO SCH (08:03)
[2016-11-20 08:20] LABS: CALCIUM, SERUM 7.9 mg/dL (8.5-10.1); CREATININE 7.4 mg/dL (0.6-1.3); MAGNESIUM 1.9 mg/dL (1.8-2.4); PHOSPHORUS 5.6 mg/dL (2.5-4.9); POTASSIUM 5.2 mmol/L (3.5-5.1)
--- NOTE | 2016-11-20 11:08 | NUR ---
RN NOTES PATIENT WITH ORDERS FOR DISCHARGE TO HOME, PT HAS OWN DIALYSIS SET UP, DR. YEH WITH PRESCRIPTION FOR NORCO PROVIDED TO PATIENT, NO SKIN ISSUES AT THIS TIME, WILL CONTINUE TO ASSIST WITH DISCHARGE PROCESS
--- NOTE | 2016-11-20 11:15 | NUR ---
RN NOTES PATIENT IN BED, ALERT AND ORIENTED X4, CALM, NO SOB, NO RESPIRATORY DISTRESS,CONTINUED ON PAIN MANAGEMENT, DENIES ANY PAIN OR DISCOMFORT AT THIS TIME, KEPT SAFE AND COMFORTABLE. PT FOR DISCHARGE, ALL DISCHARGE INSTRUCTIONS PROVIDED AND REVIEWED IN [place] WITH VERBAL UNDERSTANDING NOTED, FAMILY WANTING TO MAKE OWN APPTS, WILL GO TO [facility] TOMORROW,ASSISTED TO LOBBY, DISCHARGED IN STABLE CONDITION
[2016-11-20] MEDS ORDERED: EPOETIN ALFA (10,000 UNIT) 10,000 UNIT/ML VIAL SQ ONE (13:30)
== END 2016-11-20 11:10 | disposition home or self-care (01) | DRG 180 ==
LOC: ER 13:20 → TELE 16:16 → MED 11-15 18:42
PROVIDERS: ADMIT Internal Medicine Nephrology; ATTEND Internal Medicine Nephrology
PROC: 5A1D60Z (ICD-10-PCS; principal; 2016-11-15)
PROC: 031C0ZF Bypass Left Radial Artery to Lower Arm Vein, Open Approach (ICD-10-PCS; 2016-11-19)
DX: I95.3 Hypotension of hemodialysis (principal); I21.4 Non-ST elevation (NSTEMI) myocardial infarction; I12.0 Hypertensive chronic kidney disease with stage 5 chronic kidney disease or end stage renal disease; N18.6 End stage renal disease; I27.2 Other secondary pulmonary hypertension; E83.39 Other disorders of phosphorus metabolism; E87.5 Hyperkalemia; Z99.2 Dependence on renal dialysis; D64.9 Anemia, unspecified; Z79.899 Other long term (current) drug therapy
CPT/HCPCS: 36415; 71010-TC; 80048-TC; 80061-TC; 80076-TC; 80202-TC; 83605-TC; 83735-TC; 83880; 84100-TC; 84439-TC; 84443-TC; 84484-TC; 85025-TC; 85610-TC; 85730-TC; 86850-TC; 87040-TC; 87081-TC; 90935-TC; 93307-TC; A4606; A6402; A6403; C1769; J0885; J1644; J2250; J2270; J2405; J2440; J2543; J2704; J3010; J3370; J3490; J7040; J7050; J7060; J8597; Z7610